=== PATIENT | male | born 1955 | race Caucasian/White ===

== ENCOUNTER 2017-06-18 11:02 | Inpatient (IN) ==
[2017-06-18 11:32] LABS: Basophils # 0.1 10*3/uL (0.0-0.2); Basophils % 0.6 % (0.0-0.8); Eosinophils % 0.1 % (0.00-10.9); Hematocrit 54.7 VOL% (42.0-52.0); Hemoglobin 18.5 GM/DL (14.0-18.0); Immature Granulocytes % 0.4 %; Immature Granulocytes Absolute 0.03 #; Lymphocytes # 0.6 10*3/uL (1.4-4.0); Lymphocytes % 7.7 % (21.2-54.2); Mean Corpuscular HGB Conc 33.8 GM/DL (32-36); Mean Corpuscular Hemoglobin 31 PG (27-34); Mean Corpuscular Volume 92.2 FL (87-102); Mean Platelet Volume 11.8 FL (9.6-12.0); Monocytes # 0.8 10*3/uL (0.11-0.8); Monocytes % 10.3 % (1.7-12.7); Neutrophils # 6.6 10*3/uL (1.4-7.4); Neutrophils % 80.9 % (38.7-73.9); Platelet Count 302 T/CUMM (130-400); Red Blood Count 5.93 MC/CUMM (3.8-5.5); Red Cell Distribution Width 12.3 % (9.3-17.3); White Blood Count 8.2 T/CUMM (4-12)
[2017-06-18 11:56] LABS: Band Neutrophils 3 % (0-10); Lymphocytes 12 % (20-55); Segmented Neutrophils 74 % (50-85); Total Cells Counted 100
[2017-06-18 11:57] LABS: Hypochromasia 1+; Platelet Estimate Normal
[2017-06-18] MEDS: ONDANSETRON 4 MG/2 ML VIAL IV PRN (12:00)
[2017-06-18] MEDS: SODIUM CHLORIDE 0.9% 1,000 ML IV SCH ×2 (12:00→21:44)
[2017-06-18 12:19] LABS: Bilirubin,Total 0.9 MG/DL (0.2-1.0); Calcium 10.5 MG/DL (8.5-10.1); Osmolality,Calculated 279.7 MOS/KG (273-304); Potassium 4.2 MMOL/L (3.5-5.1); Total Protein 8.9 G/DL (6.4-8.3)
[2017-06-18] MEDS ORDERED: MAGNESIUM HYDROXIDE SUSP 30 ML UDCUP PO PRN (12:28)
[2017-06-18] MEDS ORDERED: ONDANSETRON 4 MG/2 ML VIAL IV PRN (12:28)
[2017-06-18] MEDS ORDERED: ACETAMINOPHEN 325 MG TABLET PO PRN (12:28)
[2017-06-18] MEDS: GABAPENTIN 300 MG CAPSULE PO SCH (21:38)
[2017-06-19 07:20] LABS: Basophils % 0.3 % (0.0-0.8); Eosinophils # 0.1 10*3/uL (0.0-0.87); Eosinophils % 0.7 % (0.00-10.9); Hematocrit 47.4 VOL% (42.0-52.0); Hemoglobin 16.1 GM/DL (14.0-18.0); Immature Granulocytes % 0.4 %; Immature Granulocytes Absolute 0.04 #; Lymphocytes # 0.7 10*3/uL (1.4-4.0); Mean Corpuscular Hemoglobin 32 PG (27-34); Mean Corpuscular Volume 93.1 FL (87-102); Mean Platelet Volume 10.6 FL (9.6-12.0); Monocytes # 1.2 10*3/uL (0.11-0.8); Monocytes % 12.5 % (1.7-12.7); Neutrophils # 7.5 10*3/uL (1.4-7.4); Neutrophils % 79.1 % (38.7-73.9); Platelet Count 281 T/CUMM (130-400); Red Blood Count 5.09 MC/CUMM (3.8-5.5); Red Cell Distribution Width 12.4 % (9.3-17.3); White Blood Count 9.4 T/CUMM (4-12)
[2017-06-19 07:51] LABS: Hypochromasia 2+; Microcytosis 1+; Platelet Estimate Adequate
[2017-06-19] MEDS: SODIUM CHLORIDE 0.9% 1,000 ML IV SCH (08:00)
[2017-06-19 08:20] LABS: Bilirubin,Total 0.5 MG/DL (0.2-1.0); Calcium 8.3 MG/DL (8.5-10.1)
[2017-06-19] MEDS ORDERED: cefOXitin 2,000 MG in SYRINGE 1 EACH IV ONE (10:53)
[2017-06-19] MEDS: THEOPHYLLINE ER (24 HR) 200 MG CAPSULE PO SCH (11:30)
[2017-06-19] MEDS: DUTASTERIDE 0.5 MG CAPSULE PO SCH (11:30)
[2017-06-19] MEDS: PANTOPRAZOLE 40 MG TABLET PO SCH (11:30)
[2017-06-19] MEDS ORDERED: ROPIVACAINE 0.5% 30 ML VIAL ONE (11:33)
[2017-06-19] MEDS ORDERED: ALBUTEROL/IPRATROPIUM 3 ML NEB RESP TX PRN (11:34)
[2017-06-19] MEDS: LACTATED RINGERS 1,000 ML IV SCH (12:46)
[2017-06-19] MEDS: ALBUTEROL/IPRATROPIUM 3 ML NEB RESP TX SCH ×2 (13:10→21:10)
[2017-06-19] MEDS ORDERED: ALBUMIN 5% 12.5 GM/250 ML VIAL IV ONE (13:22)
[2017-06-19] MEDS ORDERED: POTASSIUM CHLORIDE RIDER 100 ML IV ONE (13:22)
[2017-06-19] MEDS ORDERED: SUGAMMADEX 200 MG/2 ML VIAL IV ONE (13:53)
[2017-06-19] MEDS ORDERED: NALOXONE 0.4 MG/ML VIAL IV PRN (14:06)
[2017-06-19] MEDS ORDERED: HYDROmorphone PCA 30 MG/30 ML SYRINGE IV ONE (14:29)
[2017-06-19] MEDS: HYDROmorphone PCA 30 MG/30 ML SYRINGE IV SCH (14:33)
[2017-06-19] MEDS ORDERED: SUCCINYLCHOLINE 200 MG/10 ML VIAL ONE (14:43)
[2017-06-19] MEDS ORDERED: PROPOFOL 200 MG/20 ML VIAL IV ONE (14:43)
[2017-06-19] MEDS ORDERED: fentaNYL 100 MCG/2 ML VIAL ONE (14:43)
[2017-06-19] MEDS ORDERED: ROCURONIUM 100 MG/10 ML VIAL IV ONE (14:43)
[2017-06-19] MEDS ORDERED: LACTATED RINGERS 1,000 ML IV ONE (14:43)
[2017-06-19] MEDS ORDERED: MIDAZOLAM 2 MG/2 ML VIAL ONE ×2 (14:43)
[2017-06-19] MEDS ORDERED: SEVOFLURANE 1 UNIT/15 MINUTE INH ONE (14:43)
[2017-06-19] MEDS ORDERED: ONDANSETRON 4 MG/2 ML VIAL ONE (14:50)
[2017-06-19] MEDS ORDERED: HYDROmorphone 2 MG/1 ML VIAL ONE (14:50)
[2017-06-19] MEDS ORDERED: ONDANSETRON 4 MG/2 ML VIAL IV PRN (14:51)
[2017-06-19] MEDS: HYDROmorphone 2 MG/1 ML VIAL IV PRN ×2 (14:55→15:00)
[2017-06-19 15:06] LABS: Apearance,Urine CLEAR (Clear); Bilirubin,Urine Negative (Negative); Blood, Urine Small mg/dL (Negative); Glucose,Urine (UA) Negative (Negative); Ketones,Urine 5 mg/dL (Negative); Nitrite,Urine Negative (Negative); Protein,Urine Negative; RBC,Urine 5 /HPF (0-4); Squamous Epithelial Cell,Urine Occasional /HPF (0-10); Urine Color Yellow (Yellow); Urine Urobilinogen < 2.0 EU/DL (0.2-1.0); WBC,Urine 3 /HPF (0-6)
[2017-06-19] MEDS: SODIUM CHLOR 0.9% KCL 40 MEQ 40 MEQ/1,000 ML BAG IV SCH (16:33)
[2017-06-19] MEDS: cefOXitin 1,000 MG in SYRINGE 1 EACH IV SCH (20:58)
[2017-06-19] MEDS: GABAPENTIN 300 MG CAPSULE PO SCH (20:59)
[2017-06-20] MEDS: SODIUM CHLOR 0.9% KCL 40 MEQ 40 MEQ/1,000 ML BAG IV SCH ×4 (00:48→15:10)
[2017-06-20] MEDS: ALBUTEROL/IPRATROPIUM 3 ML NEB RESP TX SCH ×4 (02:41→19:17)
[2017-06-20] MEDS: cefOXitin 1,000 MG in SYRINGE 1 EACH IV SCH ×4 (02:43→20:37)
[2017-06-20 05:35] LABS: Basophils % 0.4 % (0.0-0.8); Hematocrit 44.2 VOL% (42.0-52.0); Hemoglobin 15.1 GM/DL (14.0-18.0); Immature Granulocytes % 0.6 %; Immature Granulocytes Absolute 0.06 #; Lymphocytes # 0.4 10*3/uL (1.4-4.0); Lymphocytes % 3.8 % (21.2-54.2); Mean Corpuscular HGB Conc 34.2 GM/DL (32-36); Mean Corpuscular Hemoglobin 32 PG (27-34); Mean Corpuscular Volume 93.8 FL (87-102); Monocytes # 0.9 10*3/uL (0.11-0.8); Monocytes % 8.6 % (1.7-12.7); Neutrophils # 9.1 10*3/uL (1.4-7.4); Neutrophils % 86.6 % (38.7-73.9); Platelet Count 230 T/CUMM (130-400); Red Blood Count 4.71 MC/CUMM (3.8-5.5); Red Cell Distribution Width 12.8 % (9.3-17.3); White Blood Count 10.5 T/CUMM (4-12)
[2017-06-20 06:01] LABS: Calcium 7.5 MG/DL (8.5-10.1); Osmolality,Calculated 295.8 MOS/KG (273-304)
[2017-06-20 06:50] LABS: Band Neutrophils 1 % (0-10); Hypochromasia 1+; Lymphocytes 3 % (20-55); Platelet Estimate Adequate; Segmented Neutrophils 87 % (50-85); Total Cells Counted 100
[2017-06-20 06:51] LABS: Giant Platelets Few; Microcytosis Slight
[2017-06-20] MEDS: THEOPHYLLINE ER (24 HR) 200 MG CAPSULE PO SCH (12:04)
[2017-06-20] MEDS: DUTASTERIDE 0.5 MG CAPSULE PO SCH (12:04)
[2017-06-20] MEDS: PANTOPRAZOLE 40 MG TABLET PO SCH (12:04)
[2017-06-20] MEDS: LEVOFLOXACIN INJ 500 MG in PREMIX 1 EACH IV SCH (13:01)
[2017-06-20] MEDS: LACTATED RINGERS 1,000 ML IV SCH (13:42)
[2017-06-20] MEDS: HYDROmorphone PCA 30 MG/30 ML SYRINGE IV SCH (16:20)
[2017-06-20] MEDS: DEXT 5% NACL 0.45% KCL 20 MEQ 20 MEQ/1,000 ML BAG IV SCH (16:21)
[2017-06-20] MEDS: GABAPENTIN 300 MG CAPSULE PO SCH (20:44)
[2017-06-21] MEDS: ALBUTEROL/IPRATROPIUM 3 ML NEB RESP TX SCH ×4 (00:30→20:18)
[2017-06-21] MEDS: DEXT 5% NACL 0.45% KCL 20 MEQ 20 MEQ/1,000 ML BAG IV SCH ×4 (00:37→18:56)
[2017-06-21] MEDS: cefOXitin 1,000 MG in SYRINGE 1 EACH IV SCH ×4 (03:16→20:14)
[2017-06-21 06:10] LABS: Basophils % 0.3 % (0.0-0.8); Eosinophils # 0.3 10*3/uL (0.0-0.87); Eosinophils % 3.9 % (0.00-10.9); Hematocrit 41.2 VOL% (42.0-52.0); Hemoglobin 13.3 GM/DL (14.0-18.0); Immature Granulocytes % 0.6 %; Immature Granulocytes Absolute 0.05 #; Lymphocytes # 0.8 10*3/uL (1.4-4.0); Mean Corpuscular HGB Conc 32.3 GM/DL (32-36); Mean Corpuscular Hemoglobin 32 PG (27-34); Mean Corpuscular Volume 97.9 FL (87-102); Mean Platelet Volume 11.5 FL (9.6-12.0); Monocytes # 0.8 10*3/uL (0.11-0.8); Monocytes % 9.4 % (1.7-12.7); Neutrophils # 6.7 10*3/uL (1.4-7.4); Neutrophils % 76.8 % (38.7-73.9); Platelet Count 248 T/CUMM (130-400); Red Blood Count 4.21 MC/CUMM (3.8-5.5); Red Cell Distribution Width 12.8 % (9.3-17.3); White Blood Count 8.7 T/CUMM (4-12)
[2017-06-21 06:39] LABS: Albumin 2.3 G/DL (3.4-5.0); Bilirubin,Total 1.6 MG/DL (0.2-1.0); Osmolality,Calculated 285.3 MOS/KG (273-304); Total Protein 5.1 G/DL (6.4-8.3)
[2017-06-21 07:23] LABS: Eosinophils 2 % (0-10); Giant Platelets Few; Hypochromasia 1+; Lymphocytes 10 % (20-55); Microcytosis Slight; Platelet Estimate Adequate; Segmented Neutrophils 82 % (50-85); Total Cells Counted 100
[2017-06-21] MEDS: HYDROmorphone PCA 30 MG/30 ML SYRINGE IV SCH (14:05)
[2017-06-21] MEDS: LACTATED RINGERS 1,000 ML IV SCH (14:06)
[2017-06-21] MEDS: LEVOFLOXACIN INJ 500 MG in PREMIX 1 EACH IV SCH (14:11)
[2017-06-21] MEDS: THEOPHYLLINE ER (24 HR) 200 MG CAPSULE PO SCH (17:07)
[2017-06-21] MEDS: DUTASTERIDE 0.5 MG CAPSULE PO SCH (17:07)
[2017-06-21] MEDS: PANTOPRAZOLE 40 MG TABLET PO SCH (17:09)
[2017-06-21] MEDS: GABAPENTIN 300 MG CAPSULE PO SCH (20:22)
[2017-06-22] MEDS: ALBUTEROL/IPRATROPIUM 3 ML NEB RESP TX SCH ×4 (01:13→20:06)
[2017-06-22] MEDS: cefOXitin 1,000 MG in SYRINGE 1 EACH IV SCH ×4 (03:42→20:38)
[2017-06-22] MEDS: DEXT 5% NACL 0.45% KCL 20 MEQ 20 MEQ/1,000 ML BAG IV SCH (05:39)
[2017-06-22 06:54] LABS: Calcium 7.9 MG/DL (8.5-10.1); Osmolality,Calculated 274.7 MOS/KG (273-304); Potassium 4.3 MMOL/L (3.5-5.1)
[2017-06-22] MEDS ORDERED: BUPIVACAINE 0.25% 50 ML VIAL ONE (07:51)
[2017-06-22] MEDS ORDERED: PROPOFOL 200 MG/20 ML VIAL IV ONE (09:11)
[2017-06-22] MEDS ORDERED: ONDANSETRON 4 MG/2 ML VIAL ONE (09:12)
[2017-06-22] MEDS ORDERED: SODIUM CHLORIDE 0.9% 100 ML IV ONE (09:12)
[2017-06-22] MEDS ORDERED: MIDAZOLAM 2 MG/2 ML VIAL ONE (09:12)
[2017-06-22] MEDS ORDERED: fentaNYL 100 MCG/2 ML VIAL ONE (09:12)
[2017-06-22] MEDS: DUTASTERIDE 0.5 MG CAPSULE PO SCH (10:17)
[2017-06-22] MEDS: PANTOPRAZOLE 40 MG TABLET PO SCH ×2 (10:17→18:32)
[2017-06-22] MEDS: THEOPHYLLINE ER (24 HR) 200 MG CAPSULE PO SCH (10:17)
[2017-06-22] MEDS: LEVOFLOXACIN INJ 500 MG in PREMIX 1 EACH IV SCH (13:02)
[2017-06-22] MEDS: HYDROmorphone PCA 30 MG/30 ML SYRINGE IV SCH ×2 (14:18→16:47)
[2017-06-22] MEDS ORDERED: ALUMINUM/MAGNES/SIMETH MAX STR 30 ML UDCUP PO PRN (18:32)
[2017-06-22] MEDS: GABAPENTIN 300 MG CAPSULE PO SCH (20:41)
[2017-06-23] MEDS: DEXT 5% NACL 0.45% KCL 20 MEQ 20 MEQ/1,000 ML BAG IV SCH ×2 (00:27→13:51)
[2017-06-23] MEDS: ALBUTEROL/IPRATROPIUM 3 ML NEB RESP TX SCH ×4 (00:31→19:40)
[2017-06-23] MEDS: cefOXitin 1,000 MG in SYRINGE 1 EACH IV SCH ×4 (02:06→20:42)
[2017-06-23 06:35] LABS: Calcium 8.5 MG/DL (8.5-10.1); Potassium 4.5 MMOL/L (3.5-5.1)
[2017-06-23] MEDS: DUTASTERIDE 0.5 MG CAPSULE PO SCH (08:55)
[2017-06-23] MEDS: THEOPHYLLINE ER (24 HR) 200 MG CAPSULE PO SCH (08:55)
[2017-06-23] MEDS: PANTOPRAZOLE 40 MG TABLET PO SCH (08:56)
[2017-06-23] MEDS: ONDANSETRON 4 MG/2 ML VIAL IV PRN (12:42)
[2017-06-23] MEDS: LEVOFLOXACIN INJ 500 MG in PREMIX 1 EACH IV SCH (13:51)
[2017-06-23] MEDS ORDERED: GLUCAGON 1 MG VIAL IM PRN (14:17)
[2017-06-23] MEDS ORDERED: DEXTROSE 50% 25 GM/50 ML VIAL IV PRN (14:17)
[2017-06-23] MEDS: AMINO ACIDS/DEXT/LYTES 4.25-5% 2,000 ML IV SCH (16:26)
[2017-06-23] MEDS: SUCRALFATE 1 GM/10 ML UDCUP PO SCH ×2 (16:27→20:46)
[2017-06-23] MEDS: HYDROmorphone PCA 30 MG/30 ML SYRINGE IV SCH (16:27)
[2017-06-23] MEDS: GABAPENTIN 300 MG CAPSULE PO SCH (20:46)
[2017-06-24] MEDS: cefOXitin 1,000 MG in SYRINGE 1 EACH IV SCH ×4 (02:11→21:58)
[2017-06-24 06:58] LABS: Calcium 8.5 MG/DL (8.5-10.1); Osmolality,Calculated 273.8 MOS/KG (273-304); Potassium 3.9 MMOL/L (3.5-5.1); Prealbumin 11.8 MG/DL (20-40)
[2017-06-24] MEDS: ALBUTEROL/IPRATROPIUM 3 ML NEB RESP TX SCH ×4 (07:07→19:30)
[2017-06-24] MEDS ORDERED: HYDROmorphone 2 MG/1 ML VIAL IV PRN (09:54)
[2017-06-24] MEDS: SUCRALFATE 1 GM/10 ML UDCUP PO SCH ×4 (11:07→21:57)
[2017-06-24] MEDS: THEOPHYLLINE ER (24 HR) 200 MG CAPSULE PO SCH (11:08)
[2017-06-24] MEDS: PANTOPRAZOLE 40 MG TABLET PO SCH (11:08)
[2017-06-24] MEDS: DUTASTERIDE 0.5 MG CAPSULE PO SCH (11:08)
[2017-06-24] MEDS: AMINO ACIDS/DEXT/LYTES 4.25-5% 2,000 ML IV SCH (16:23)
[2017-06-24] MEDS: LEVOFLOXACIN INJ 500 MG in PREMIX 1 EACH IV SCH (16:24)
[2017-06-24] MEDS: GABAPENTIN 300 MG CAPSULE PO SCH (21:58)
[2017-06-25] MEDS: ALBUTEROL/IPRATROPIUM 3 ML NEB RESP TX SCH ×4 (00:50→20:03)
[2017-06-25] MEDS: cefOXitin 1,000 MG in SYRINGE 1 EACH IV SCH ×4 (04:31→22:00)
[2017-06-25] MEDS: DUTASTERIDE 0.5 MG CAPSULE PO SCH (09:35)
[2017-06-25] MEDS: SUCRALFATE 1 GM/10 ML UDCUP PO SCH ×4 (09:35→22:17)
[2017-06-25] MEDS: THEOPHYLLINE ER (24 HR) 200 MG CAPSULE PO SCH (09:35)
[2017-06-25] MEDS: PANTOPRAZOLE 40 MG TABLET PO SCH (09:35)
[2017-06-25 13:46] LABS: Basophils # 0.1 10*3/uL (0.0-0.2); Eosinophils # 0.3 10*3/uL (0.0-0.87); Hematocrit 45.6 VOL% (42.0-52.0); Hemoglobin 15.3 GM/DL (14.0-18.0); Immature Granulocytes Absolute 0.46 #; Lymphocytes # 1.3 10*3/uL (1.4-4.0); Lymphocytes % 11.3 % (21.2-54.2); Mean Corpuscular HGB Conc 33.6 GM/DL (32-36); Mean Corpuscular Hemoglobin 31 PG (27-34); Mean Corpuscular Volume 93.1 FL (87-102); Mean Platelet Volume 10.3 FL (9.6-12.0); Monocytes # 1.3 10*3/uL (0.11-0.8); Monocytes % 11.2 % (1.7-12.7); Neutrophils # 7.9 10*3/uL (1.4-7.4); Neutrophils % 69.5 % (38.7-73.9); Platelet Count 365 T/CUMM (130-400); Red Cell Distribution Width 12.4 % (9.3-17.3); White Blood Count 11.4 T/CUMM (4-12)
[2017-06-25] MEDS: AMINO ACIDS/DEXT/LYTES 4.25-5% 2,000 ML IV SCH (14:22)
[2017-06-25] MEDS: VANCOMYCIN INJ 1,000 MG in SODIUM CHLORIDE 0.9% 250 ML IV SCH (16:36)
[2017-06-25] MEDS: LEVOFLOXACIN INJ 500 MG in PREMIX 1 EACH IV SCH (18:46)
[2017-06-25] MEDS: GABAPENTIN 300 MG CAPSULE PO SCH (22:17)
[2017-06-26] MEDS: ALBUTEROL/IPRATROPIUM 3 ML NEB RESP TX SCH ×3 (01:05→20:02)
[2017-06-26] MEDS: VANCOMYCIN INJ 1,000 MG in SODIUM CHLORIDE 0.9% 250 ML IV SCH ×2 (02:24→14:35)
[2017-06-26] MEDS: cefOXitin 1,000 MG in SYRINGE 1 EACH IV SCH ×4 (04:34→22:43)
[2017-06-26 05:27] LABS: Basophils # 0.1 10*3/uL (0.0-0.2); Basophils % 1.2 % (0.0-0.8); Eosinophils # 0.4 10*3/uL (0.0-0.87); Eosinophils % 3.4 % (0.00-10.9); Hematocrit 42.1 VOL% (42.0-52.0); Hemoglobin 14.5 GM/DL (14.0-18.0); Immature Granulocytes % 4.2 %; Immature Granulocytes Absolute 0.46 #; Lymphocytes # 1.3 10*3/uL (1.4-4.0); Lymphocytes % 11.5 % (21.2-54.2); Mean Corpuscular HGB Conc 34.4 GM/DL (32-36); Mean Corpuscular Hemoglobin 32 PG (27-34); Mean Corpuscular Volume 91.9 FL (87-102); Mean Platelet Volume 10.3 FL (9.6-12.0); Monocytes # 1.3 10*3/uL (0.11-0.8); Monocytes % 11.7 % (1.7-12.7); Neutrophils # 7.5 10*3/uL (1.4-7.4); Platelet Count 339 T/CUMM (130-400); Red Blood Count 4.58 MC/CUMM (3.8-5.5); Red Cell Distribution Width 12.4 % (9.3-17.3)
[2017-06-26 05:57] LABS: Osmolality,Calculated 273.1 MOS/KG (273-304); Potassium 4.4 MMOL/L (3.5-5.1)
[2017-06-26] MEDS: PANTOPRAZOLE 40 MG TABLET PO SCH (08:01)
[2017-06-26] MEDS: DUTASTERIDE 0.5 MG CAPSULE PO SCH (08:01)
[2017-06-26] MEDS: THEOPHYLLINE ER (24 HR) 200 MG CAPSULE PO SCH (08:01)
[2017-06-26] MEDS: SUCRALFATE 1 GM/10 ML UDCUP PO SCH ×4 (08:01→20:44)
[2017-06-26] MEDS: AMINO ACIDS/DEXT/LYTES 4.25-5% 2,000 ML IV SCH (12:05)
[2017-06-26] MEDS: LEVOFLOXACIN INJ 500 MG in PREMIX 1 EACH IV SCH (16:27)
[2017-06-26] MEDS: GABAPENTIN 300 MG CAPSULE PO SCH (20:43)
[2017-06-27] MEDS: VANCOMYCIN INJ 1,000 MG in SODIUM CHLORIDE 0.9% 250 ML IV SCH ×2 (02:43→15:36)
[2017-06-27] MEDS: cefOXitin 1,000 MG in SYRINGE 1 EACH IV SCH ×4 (03:59→22:51)
[2017-06-27 04:51] LABS: Calcium 8.9 MG/DL (8.5-10.1); Osmolality,Calculated 275.8 MOS/KG (273-304); Potassium 4.4 MMOL/L (3.5-5.1)
[2017-06-27] MEDS: ALBUTEROL/IPRATROPIUM 3 ML NEB RESP TX SCH ×2 (07:52→20:02)
[2017-06-27] MEDS: SUCRALFATE 1 GM/10 ML UDCUP PO SCH ×4 (09:07→21:06)
[2017-06-27] MEDS: DUTASTERIDE 0.5 MG CAPSULE PO SCH (09:08)
[2017-06-27] MEDS: PANTOPRAZOLE 40 MG TABLET PO SCH (09:08)
[2017-06-27] MEDS: THEOPHYLLINE ER (24 HR) 200 MG CAPSULE PO SCH (09:08)
[2017-06-27] MEDS: AMINO ACIDS/DEXT/LYTES 4.25-5% 2,000 ML IV SCH (12:59)
[2017-06-27] MEDS: LEVOFLOXACIN INJ 500 MG in PREMIX 1 EACH IV SCH (17:26)
[2017-06-27] MEDS: GABAPENTIN 300 MG CAPSULE PO SCH (21:05)
[2017-06-28] MEDS: VANCOMYCIN INJ 1,000 MG in SODIUM CHLORIDE 0.9% 250 ML IV SCH (02:55)
[2017-06-28] MEDS: cefOXitin 1,000 MG in SYRINGE 1 EACH IV SCH ×2 (04:48→11:47)
[2017-06-28 05:26] LABS: Calcium 9.2 MG/DL (8.5-10.1); Osmolality,Calculated 275.8 MOS/KG (273-304); Potassium 4.4 MMOL/L (3.5-5.1)
[2017-06-28] MEDS: ALBUTEROL/IPRATROPIUM 3 ML NEB RESP TX SCH (08:00)
[2017-06-28] MEDS: SUCRALFATE 1 GM/10 ML UDCUP PO SCH ×2 (09:16→11:48)
[2017-06-28] MEDS: THEOPHYLLINE ER (24 HR) 200 MG CAPSULE PO SCH (09:16)
[2017-06-28] MEDS: DUTASTERIDE 0.5 MG CAPSULE PO SCH (09:16)
[2017-06-28] MEDS: PANTOPRAZOLE 40 MG TABLET PO SCH (09:16)
[2017-06-28 13:29] VITALS: BP 104/67
== END 2017-06-28 13:32 | disposition home or self-care (01) | DRG 344 ==
LOC: N.GILAB 11:02 → N.4E 13:12
PROVIDERS: ADMIT Internal Medicine Gastroenterology; ATTEND Internal Medicine Gastroenterology

== ENCOUNTER 2021-11-14 13:40 | Inpatient (IN) ==
[2021-11-14] MEDS ORDERED: HEPARIN LOCK FLUSH 500 UNIT/5 ML SYRINGE IV ONE (14:16)
[2021-11-14] MEDS ORDERED: SODIUM CHLORIDE 0.9% 500 ML IV ONE (15:37)
[2021-11-14] MEDS: SODIUM CHLORIDE 0.9% 1,000 ML IV SCH (16:58)
[2021-11-14 17:35] LABS: Basophils % 0.6 % (0.0-0.8); Eosinophils # 0.1 10*3/uL (0.0-0.87); Eosinophils % 2.2 % (0.00-10.9); Hematocrit 35.2 VOL% (42.0-52.0); Hemoglobin 11.6 GM/DL (14.0-18.0); Immature Granulocytes % 0.6 %; Immature Granulocytes Absolute 0.02 #; Lymphocytes # 0.3 10*3/uL (1.4-4.0); Lymphocytes % 8.4 % (21.2-54.2); Mean Corpuscular Volume 95.9 FL (87-102); Mean Platelet Volume 9.2 FL (9.6-12.0); Monocytes # 0.6 10*3/uL (0.11-0.8); Monocytes % 16.7 % (1.7-12.7); Neutrophils % 71.5 % (38.7-73.9); Platelet Count 243 T/CUMM (130-400); Red Blood Count 3.67 MC/CUMM (3.8-5.5); Red Cell Distribution Width 14.2 % (9.3-17.3); White Blood Count 3.6 T/CUMM (4-12)
[2021-11-14 17:56] LABS: Albumin 2.6 G/DL (3.4-5.0); Bilirubin,Total 0.4 MG/DL (0.20-1.00); Osmolality,Calculated 273.8 MOS/KG (273-304); Potassium 3.8 MMOL/L (3.5-5.1); Total Protein 6.4 G/DL (6.4-8.2)
[2021-11-14 18:09] LABS: Band Neutrophils 12 % (0-10); Eosinophils 2 % (0-10); Lymphocytes 13 % (20-55); Total Cells Counted 100
[2021-11-14 18:10] LABS: Platelet Estimate Adequate
[2021-11-15] MEDS: SODIUM CHLORIDE 0.9% 1,000 ML IV SCH (06:00)
[2021-11-15] MEDS ORDERED: LACTATED RINGERS 1,000 ML IV SCH (11:00)
[2021-11-15] MEDS ORDERED: ROCURONIUM 50 MG/5 ML VIAL IV ONE ×2 (12:02→13:43)
[2021-11-15] MEDS ORDERED: ONDANSETRON 4 MG/2 ML VIAL ONE ×2 (12:02→14:06)
[2021-11-15] MEDS ORDERED: SEVOFLURANE 1 UNIT/15 MINUTE INH ONE ×7 (12:02→14:06)
[2021-11-15] MEDS ORDERED: LIDOCAINE 2% 5 ML VIAL ONE (12:02)
[2021-11-15] MEDS ORDERED: propofoL 200 MG/20 ML VIAL IV ONE ×2 (12:02→13:13)
[2021-11-15] MEDS ORDERED: PHENYLEPHRINE 1 MG/10 ML SYRINGE IV ONE ×4 (13:31→14:26)
[2021-11-15] MEDS ORDERED: fentaNYL 100 MCG/2 ML VIAL ONE (13:43)
[2021-11-15] MEDS ORDERED: CLINDAMYCIN INJ 900 MG/50 ML PREMIX IV ONE (13:59)
[2021-11-15] MEDS ORDERED: ePHEDrine 50 MG/ML VIAL ONE (14:18)
[2021-11-15] MEDS ORDERED: CALCIUM CHLORIDE 1,000 MG/10 ML VIAL IV ONE (14:32)
[2021-11-15] MEDS ORDERED: ALBUMIN 5% 25.0 GM/500 ML VIAL IV ONE (14:38)
[2021-11-15 14:58] LABS: Hematocrit Heart Surgery 35.3 PERCENT (42-52); Hemoglobin Heart Surgery 11.5 G/DL (14.0-18.0); PH Patient Temp Venous 7.184; PO2 Patient Temp Venous 60.2 MM HG; Potassium Heart/CVR 3.4 MMOL/L (3.5-5.1); VBG Base Excess -8.5 MEQ/L (0-4); VBG HCO3 17.3 MEQ/L (24-28); VBG Oxygen Saturation 77.9 %; VBG PH 7.184; VBG PO2 60.2 MMHG (17-40); VBG Total CO2 18.9 MMOL/L
[2021-11-15] MEDS ORDERED: HEPARIN/NACL 0.9% 2 UNITS/ML 1,000 UNIT/500 ML BAG IV ONE (15:15)
[2021-11-15 15:32] LABS: ABG Base Excess -9.5 MMOL/L (-2.5-2.5); ABG HCO3 16.9 MMOL/L (20-26); ABG Oxygen Saturation 99.2 % (95-100); ABG PCO2 42.9 MM HG (35-48); ABG PH 7.227 (7.35-7.45); ABG TCO2 16.5 MMOL/L (23-27); Glucose Heart Surgery 81 MG/DL (74-106); Hematocrit Heart Surgery 32.2 PERCENT (42-52); Hemoglobin Heart Surgery 10.4 G/DL (14.0-18.0); Ionized Calcium Arterial 1.44 MMOL/L (1.21-1.46); PCO2 Patient Temp Arterial 42.9 MMHG; PH Patient Temp Arterial 7.227; Patient Temperature 37 CELCIUS; Potassium Heart/CVR 3.2 MMOL/L (3.5-5.1); Sodium Heart/CVR 140 MMOL/L (135-145)
[2021-11-15] MEDS ORDERED: SUGAMMADEX 200 MG/2 ML VIAL IV ONE (15:34)
[2021-11-15 15:46] LABS: Bacteria,Urine Occasional /HPF (Few); Mucus,Urine Occasional /LPF (Occasional); RBC,Urine 2 /HPF (0-4)
[2021-11-15 15:47] LABS: Urine Appearance Clear (Clear); Urine Color Yellow (Yellow)
[2021-11-15 15:48] LABS: Bilirubin,Urine Small mg/dL (Negative); Blood, Urine Negative (Negative); Glucose,Urine (UA) Negative (Negative); Ketones,Urine 80 mg/dL (Negative); Nitrite,Urine Negative (Negative); Protein,Urine Negative (Negative); Urine Specific Gravity 1.025 (1.001-1.035); Urine Urobilinogen 0.2 eU/dL (<2.0); Urine pH 5.5 (4.5-8.0)
[2021-11-15] MEDS ORDERED: SODIUM BICARBONATE 50 MEQ/50 ML VIAL IV ONE (15:50)
[2021-11-15] MEDS ORDERED: CISATRACURIUM 10 MG/5 ML VIAL IV ONE (15:53)
[2021-11-15] MEDS ORDERED: MIDAZOLAM 2 MG/2 ML VIAL ONE (15:56)
[2021-11-15] MEDS ORDERED: SODIUM CHLORIDE 0.9% 1,000 ML IV ONE (15:59)
[2021-11-15] MEDS: HYDROmorphone 1 MG/1 ML SYRINGE IV PRN ×2 (16:35→19:20)
[2021-11-15] MEDS: DEXTROSE 5% LACTATED RINGERS 1,000 ML IV SCH (16:41)
[2021-11-15 17:05] LABS: Basophils % 1.1 % (0.0-0.8); Eosinophils % 1.1 % (0.00-10.9); Hematocrit 33.5 VOL% (42.0-52.0); Hemoglobin 10.8 GM/DL (14.0-18.0); Immature Granulocytes % 1.1 %; Immature Granulocytes Absolute 0.01 #; Lymphocytes # 0.1 10*3/uL (1.4-4.0); Lymphocytes % 7.7 % (21.2-54.2); Mean Corpuscular HGB Conc 32.2 GM/DL (32-36); Mean Platelet Volume 8.6 FL (9.6-12.0); Monocytes % 2.2 % (1.7-12.7); Neutrophils % 86.8 % (38.7-73.9); Platelet Count 192 T/CUMM (130-400); Red Blood Count 3.42 MC/CUMM (3.8-5.5); Red Cell Distribution Width 14.3 % (9.3-17.3)
[2021-11-15 17:10] LABS: ABG Base Excess -7.1 MMOL/L (-2.5-2.5); ABG HCO3 18.7 MMOL/L (20-26); ABG Oxygen Saturation 96.1 % (95-100); ABG PCO2 50.2 MM HG (35-48); ABG PH 7.227 (7.35-7.45); ABG TCO2 19.1 MMOL/L (23-27)
[2021-11-15 17:10] LABS: White Blood Count 0.9 T/CUMM (4-12)
[2021-11-15 17:23] LABS: Calcium 8.7 MG/DL (8.5-10.1); Osmolality,Calculated 283.1 MOS/KG (273-304); Potassium 3.1 MMOL/L (3.5-5.1)
[2021-11-15 17:29] LABS: Platelet Estimate Adequate; Toxic Granulation 1+
[2021-11-15] MEDS ORDERED: ALBUMIN 5% 12.5 GM/250 ML VIAL IV ONE (18:00)
[2021-11-15 20:00] LABS: Calcium 8.3 MG/DL (8.5-10.1); Potassium 3.1 MMOL/L (3.5-5.1)
[2021-11-15] MEDS: POTASSIUM CHLORIDE RIDER 20 MEQ/100 ML PREMIX IV PRN ×2 (20:25→21:18)
[2021-11-15] MEDS: MAGNESIUM SULF RIDER 2 GM/50 ML PREMIX IV PRN ×2 (20:26→21:57)
[2021-11-15] MEDS ORDERED: LACTATED RINGERS 1,000 ML IV ONE (20:30)
[2021-11-15] MEDS: metroNIDAZOLE INJ 500 MG/100 ML PREMIX IV SCH (21:11)
[2021-11-15] MEDS ORDERED: NOREPINEPHRINE 4 MG/4 ML VIAL IV ONE (21:32)
[2021-11-15] MEDS: NOREPINEPHRINE 8 MG in SODIUM CHLORIDE 0.9% 242 ML IV PRN (21:40)
[2021-11-15] MEDS: FILGRASTIM-SNDZ 300 MCG/0.5 ML SYRINGE SUBCUT SCH (22:07)
[2021-11-16] MEDS: POTASSIUM CHLORIDE RIDER 20 MEQ/100 ML PREMIX IV PRN (01:29)
[2021-11-16] MEDS: DEXTROSE 5% LACTATED RINGERS 1,000 ML IV SCH ×3 (01:45→19:53)
[2021-11-16] MEDS ORDERED: MIDAZOLAM 100 MG in SODIUM CHLORIDE 0.9% 80 ML IV PRN (02:21)
[2021-11-16] MEDS: POTASSIUM CHLORIDE RIDER 10 MEQ/100 ML PREMIX IV PRN (02:38)
[2021-11-16] MEDS: NOREPINEPHRINE 8 MG in SODIUM CHLORIDE 0.9% 242 ML IV PRN ×4 (04:03→20:53)
[2021-11-16 04:11] LABS: Basophils % 0.4 % (0.0-0.8); Hematocrit 32.7 VOL% (42.0-52.0); Hemoglobin 10.9 GM/DL (14.0-18.0); Immature Granulocytes % 0.9 %; Immature Granulocytes Absolute 0.04 #; Lymphocytes # 0.1 10*3/uL (1.4-4.0); Lymphocytes % 1.7 % (21.2-54.2); Mean Corpuscular HGB Conc 33.3 GM/DL (32-36); Mean Corpuscular Volume 96.5 FL (87-102); Mean Platelet Volume 9.2 FL (9.6-12.0); Monocytes # 0.3 10*3/uL (0.11-0.8); Monocytes % 5.9 % (1.7-12.7); Neutrophils % 91.1 % (38.7-73.9); Platelet Count 238 T/CUMM (130-400); Red Blood Count 3.39 MC/CUMM (3.8-5.5); Red Cell Distribution Width 14.3 % (9.3-17.3); White Blood Count 4.6 T/CUMM (4-12)
[2021-11-16 04:16] LABS: ABG Base Excess -2.7 MMOL/L (-2.5-2.5); ABG HCO3 22.2 MMOL/L (20-26); ABG Oxygen Saturation 98.7 % (95-100); ABG PCO2 36.2 MM HG (35-48); ABG PH 7.388 (7.35-7.45); ABG TCO2 19.6 MMOL/L (23-27)
[2021-11-16 04:39] LABS: Alanine Aminotransferase 16 U/L (16-61); Albumin 2.3 G/DL (3.4-5.0); Alkaline Phosphatase 79 U/L (45-117); Aspartate Amino Transferase 18 U/L (0-37); Bilirubin,Total < 0.39 MG/DL (0.20-1.00); Blood Urea Nitrogen 19 MG/DL (7-18); Calcium 8.1 MG/DL (8.5-10.1); Carbon Dioxide 22 MMOL/L (21-32); Chloride 113 MMOL/L (98-107); Glucose 205 MG/DL (74-106); Osmolality,Calculated 288.3 MOS/KG (273-304); Potassium 4.1 MMOL/L (3.5-5.1); Sodium 141 MMOL/L (136-145); Total Protein 4.9 G/DL (6.4-8.2)
[2021-11-16] MEDS: HYDROmorphone 1 MG/1 ML SYRINGE IV PRN ×4 (05:08→19:33)
[2021-11-16] MEDS: metroNIDAZOLE INJ 500 MG/100 ML PREMIX IV SCH (05:10)
[2021-11-16 05:13] LABS: Band Neutrophils 10 % (0-10); Lymphocytes 4 % (20-55); Total Cells Counted 100
[2021-11-16 05:15] LABS: Platelet Estimate Normal
[2021-11-16] MEDS: PANTOPRAZOLE 40 MG VIAL IV SCH (08:12)
[2021-11-16] MEDS: FILGRASTIM-SNDZ 300 MCG/0.5 ML SYRINGE SUBCUT SCH (08:13)
[2021-11-16] MEDS: cefOXitin 1,000 MG in SODIUM CHLORIDE 0.9% 100 ML IV SCH ×2 (09:00→17:18)
[2021-11-16] MEDS ORDERED: LEVOFLOXACIN INJ 500 MG/100 ML PREMIX IV ONE (09:40)
[2021-11-16] MEDS ORDERED: ALBUMIN 5% 12.5 GM/250 ML VIAL IV ONE ×2 (11:54→12:30)
[2021-11-16] MEDS: ONDANSETRON 4 MG/2 ML VIAL IV PRN (19:34)
[2021-11-17] MEDS: HYDROmorphone 1 MG/1 ML SYRINGE IV PRN ×5 (00:22→20:32)
[2021-11-17] MEDS: ONDANSETRON 4 MG/2 ML VIAL IV PRN ×4 (00:23→20:32)
[2021-11-17] MEDS: cefOXitin 1,000 MG in SODIUM CHLORIDE 0.9% 100 ML IV SCH ×3 (02:16→18:00)
[2021-11-17] MEDS: NOREPINEPHRINE 8 MG in SODIUM CHLORIDE 0.9% 242 ML IV PRN (03:32)
[2021-11-17] MEDS: DEXTROSE 5% LACTATED RINGERS 1,000 ML IV SCH ×2 (04:26→18:17)
[2021-11-17 04:34] LABS: Basophils % 0.1 % (0.0-0.8); Eosinophils % 0.2 % (0.00-10.9); Hematocrit 32.3 VOL% (42.0-52.0); Hemoglobin 10.5 GM/DL (14.0-18.0); Immature Granulocytes % 1.7 %; Immature Granulocytes Absolute 0.31 #; Lymphocytes # 0.2 10*3/uL (1.4-4.0); Lymphocytes % 1.1 % (21.2-54.2); Mean Corpuscular HGB Conc 32.5 GM/DL (32-36); Mean Corpuscular Volume 96.7 FL (87-102); Mean Platelet Volume 9.4 FL (9.6-12.0); Monocytes # 0.2 10*3/uL (0.11-0.8); Monocytes % 1.3 % (1.7-12.7); Neutrophils % 95.6 % (38.7-73.9); Red Blood Count 3.34 MC/CUMM (3.8-5.5); Red Cell Distribution Width 14.6 % (9.3-17.3)
[2021-11-17 04:38] LABS: Platelet Count 165 T/CUMM (130-400); White Blood Count 17.7 T/CUMM (4-12)
[2021-11-17 04:50] LABS: Alanine Aminotransferase 19 U/L (16-61); Albumin 2.1 G/DL (3.4-5.0); Alkaline Phosphatase 90 U/L (45-117); Aspartate Amino Transferase 21 U/L (0-37); Bilirubin,Total < 0.39 MG/DL (0.20-1.00); Blood Urea Nitrogen 13 MG/DL (7-18); Calcium 8.1 MG/DL (8.5-10.1); Carbon Dioxide 24 MMOL/L (21-32); Chloride 114 MMOL/L (98-107); Glucose 91 MG/DL (74-106); Potassium 4.2 MMOL/L (3.5-5.1); Sodium 143 MMOL/L (136-145); Total Protein 4.9 G/DL (6.4-8.2)
[2021-11-17 04:56] LABS: ABG Base Excess 0.3 MMOL/L (-2.5-2.5); ABG HCO3 24.5 MMOL/L (20-26); ABG Oxygen Saturation 88.6 % (95-100); ABG PCO2 43.8 MM HG (35-48); ABG PH 7.376 (7.35-7.45); ABG PO2 59.8 MM HG (80-95); ABG TCO2 23.3 MMOL/L (23-27)
[2021-11-17 05:10] LABS: Band Neutrophils 16 % (0-10); Lymphocytes 1 % (20-55); Metamyelocytes 6 %; Total Cells Counted 100
[2021-11-17 05:11] LABS: Hypochromia 2+
[2021-11-17 05:12] LABS: Platelet Estimate Normal
[2021-11-17] MEDS: PANTOPRAZOLE 40 MG VIAL IV SCH (08:29)
[2021-11-17] MEDS: FILGRASTIM-SNDZ 300 MCG/0.5 ML SYRINGE SUBCUT SCH (08:30)
[2021-11-17] MEDS ORDERED: FUROSEMIDE 40 MG/4 ML VIAL IV ONE (09:00)
[2021-11-17] MEDS: HYDROCORTISONE 100 MG VIAL IV SCH ×2 (09:15→18:00)
[2021-11-17 09:16] LABS: Arterial Base Excess iSTAT 0 MMOL/L (-2.5-2.5); Arterial Bicarbonate iSTAT 25.6 MMOL/L (20-26); Arterial O2 Saturation iSTAT 92 % (95-100); Arterial PCO2 iSTAT 47 MM HG (35-48); Arterial PO2 iSTAT 68 MM HG (80-95); Arterial Total CO2 iSTAT 27 MMO/L (23-27); Arterial pH iSTAT 7.349 (7.35-7.45)
[2021-11-17] MEDS ORDERED: LIDOCAINE 5% PATCH TRANSDERM SCH (10:29)
[2021-11-17] MEDS: LIDOCAINE 5% PATCH TRANSDERM SCH (14:30)
[2021-11-18] MEDS: cefOXitin 1,000 MG in SODIUM CHLORIDE 0.9% 100 ML IV SCH ×3 (00:50→16:45)
[2021-11-18] MEDS: HYDROCORTISONE 100 MG VIAL IV SCH (00:51)
[2021-11-18] MEDS: ONDANSETRON 4 MG/2 ML VIAL IV PRN (00:51)
[2021-11-18] MEDS: HYDROmorphone 1 MG/1 ML SYRINGE IV PRN (00:51)
[2021-11-18 04:21] LABS: Hematocrit 31.5 VOL% (42.0-52.0); Hemoglobin 10.5 GM/DL (14.0-18.0); Immature Granulocytes % 0.5 %; Immature Granulocytes Absolute 0.16 #; Lymphocytes # 0.2 10*3/uL (1.4-4.0); Lymphocytes % 0.5 % (21.2-54.2); Mean Corpuscular HGB Conc 33.3 GM/DL (32-36); Mean Corpuscular Volume 95.2 FL (87-102); Mean Platelet Volume 10.1 FL (9.6-12.0); Monocytes # 0.3 10*3/uL (0.11-0.8); Platelet Count 124 T/CUMM (130-400); Red Blood Count 3.31 MC/CUMM (3.8-5.5); Red Cell Distribution Width 14.5 % (9.3-17.3); White Blood Count 30.9 T/CUMM (4-12)
[2021-11-18 04:40] LABS: Alanine Aminotransferase 19 U/L (16-61); Alkaline Phosphatase 125 U/L (45-117); Aspartate Amino Transferase 26 U/L (0-37); Bilirubin,Total < 0.39 MG/DL (0.20-1.00); Blood Urea Nitrogen 20 MG/DL (7-18); Calcium 8.3 MG/DL (8.5-10.1); Carbon Dioxide 27 MMOL/L (21-32); Chloride 113 MMOL/L (98-107); Glucose 98 MG/DL (74-106); Osmolality,Calculated 290.7 MOS/KG (273-304); Potassium 3.9 MMOL/L (3.5-5.1); Sodium 145 MMOL/L (136-145)
[2021-11-18 04:46] LABS: Band Neutrophils 2 % (0-10); Lymphocytes 1 % (20-55); Total Cells Counted 100
[2021-11-18 04:47] LABS: Platelet Estimate Normal
[2021-11-18] MEDS: METOPROLOL TARTRATE 5 MG/5 ML VIAL IV SCH ×3 (08:44→09:15)
[2021-11-18] MEDS ORDERED: FUROSEMIDE 20 MG/2 ML VIAL IV ONE ×2 (08:54→15:17)
[2021-11-18] MEDS ORDERED: HYDROCORTISONE 100 MG VIAL IV SCH (09:00)
[2021-11-18] MEDS: PANTOPRAZOLE 40 MG VIAL IV SCH (09:18)
[2021-11-18] MEDS: LIDOCAINE 5% PATCH TRANSDERM SCH (09:19)
[2021-11-18] MEDS: ENOXAPARIN 60 MG/0.6 ML SYRINGE SUBCUT SCH ×2 (09:19→21:35)
[2021-11-18] MEDS: DEXTROSE 5% LACTATED RINGERS 1,000 ML IV SCH (19:08)
[2021-11-19 04:03] LABS: Basophils # 0.1 10*3/uL (0.0-0.2); Basophils % 0.3 % (0.0-0.8); Eosinophils % 0.2 % (0.00-10.9); Hematocrit 33.2 VOL% (42.0-52.0); Hemoglobin 11.1 GM/DL (14.0-18.0); Immature Granulocytes % 0.7 %; Immature Granulocytes Absolute 0.14 #; Lymphocytes # 0.3 10*3/uL (1.4-4.0); Lymphocytes % 1.5 % (21.2-54.2); Mean Corpuscular HGB Conc 33.4 GM/DL (32-36); Mean Corpuscular Volume 94.1 FL (87-102); Mean Platelet Volume 10.5 FL (9.6-12.0); Monocytes # 0.3 10*3/uL (0.11-0.8); Monocytes % 1.6 % (1.7-12.7); Neutrophils % 95.7 % (38.7-73.9); Platelet Count 103 T/CUMM (130-400); Red Blood Count 3.53 MC/CUMM (3.8-5.5); Red Cell Distribution Width 14.4 % (9.3-17.3); White Blood Count 20.3 T/CUMM (4-12)
[2021-11-19 04:25] LABS: Lymphocytes 1 % (20-55); Total Cells Counted 100
[2021-11-19 04:27] LABS: Alanine Aminotransferase 19 U/L (16-61); Albumin 1.9 G/DL (3.4-5.0); Alkaline Phosphatase 232 U/L (45-117); Aspartate Amino Transferase 29 U/L (0-37); Bilirubin,Total < 0.39 MG/DL (0.20-1.00); Blood Urea Nitrogen 26 MG/DL (7-18); Calcium 8.6 MG/DL (8.5-10.1); Carbon Dioxide 33 MMOL/L (21-32); Chloride 109 MMOL/L (98-107); Glucose 77 MG/DL (74-106); Osmolality,Calculated 293.6 MOS/KG (273-304); Platelet Estimate Decreased; Sodium 146 MMOL/L (136-145); Total Protein 5.1 G/DL (6.4-8.2)
[2021-11-19] MEDS: POTASSIUM CHLORIDE RIDER 20 MEQ/100 ML PREMIX IV PRN ×2 (04:55→06:05)
[2021-11-19] MEDS: DEXTROSE 5% LACTATED RINGERS 1,000 ML IV SCH ×2 (06:05→23:32)
[2021-11-19] MEDS ORDERED: FUROSEMIDE 20 MG/2 ML VIAL IV ONE (09:05)
[2021-11-19] MEDS: LIDOCAINE 5% PATCH TRANSDERM SCH (09:06)
[2021-11-19] MEDS ORDERED: ALBUMIN 25% 25 GM/100 ML VIAL IV ONE (09:06)
[2021-11-19] MEDS: PANTOPRAZOLE 40 MG VIAL IV SCH (09:07)
[2021-11-19] MEDS: ENOXAPARIN 60 MG/0.6 ML SYRINGE SUBCUT SCH ×2 (09:07→20:10)
[2021-11-19] MEDS: POTASSIUM CHLORIDE RIDER 10 MEQ/100 ML PREMIX IV PRN (14:31)
[2021-11-19] MEDS: ONDANSETRON 4 MG/2 ML VIAL IV PRN (22:20)
[2021-11-19] MEDS: HYDROmorphone 1 MG/1 ML SYRINGE IV PRN (22:25)
[2021-11-20 05:36] LABS: Basophils % 0.1 % (0.0-0.8); Eosinophils # 0.1 10*3/uL (0.0-0.87); Eosinophils % 0.7 % (0.00-10.9); Hematocrit 31.7 VOL% (42.0-52.0); Hemoglobin 10.5 GM/DL (14.0-18.0); Immature Granulocytes % 0.6 %; Immature Granulocytes Absolute 0.04 #; Lymphocytes # 0.3 10*3/uL (1.4-4.0); Lymphocytes % 3.9 % (21.2-54.2); Mean Corpuscular HGB Conc 33.1 GM/DL (32-36); Mean Corpuscular Volume 95.5 FL (87-102); Mean Platelet Volume 10.3 FL (9.6-12.0); Monocytes # 0.3 10*3/uL (0.11-0.8); Monocytes % 4.6 % (1.7-12.7); Neutrophils % 90.1 % (38.7-73.9); Platelet Count 93 T/CUMM (130-400); Red Blood Count 3.32 MC/CUMM (3.8-5.5); Red Cell Distribution Width 14.6 % (9.3-17.3); White Blood Count 6.8 T/CUMM (4-12)
[2021-11-20 05:51] LABS: Calcium 8.3 MG/DL (8.5-10.1); Osmolality,Calculated 293.6 MOS/KG (273-304)
[2021-11-20 05:54] LABS: Eosinophils 2 % (0-10); Lymphocytes 6 % (20-55); Total Cells Counted 100
[2021-11-20 05:56] LABS: Platelet Estimate Decreased
[2021-11-20] MEDS: HYDROmorphone 1 MG/1 ML SYRINGE IV PRN ×2 (06:05→21:21)
[2021-11-20] MEDS: PANTOPRAZOLE 40 MG VIAL IV SCH (08:48)
[2021-11-20] MEDS: FUROSEMIDE 20 MG/2 ML VIAL IV SCH (08:49)
[2021-11-20] MEDS: LIDOCAINE 5% PATCH TRANSDERM SCH (08:50)
[2021-11-20] MEDS: ALUMINUM/MAGNES/SIMETH MAX STR 30 ML UDCUP PO SCH ×3 (08:50→16:12)
[2021-11-20] MEDS: ENOXAPARIN 60 MG/0.6 ML SYRINGE SUBCUT SCH ×2 (08:50→20:09)
[2021-11-20] MEDS: POTASSIUM CHLORIDE RIDER 20 MEQ/100 ML PREMIX IV PRN ×4 (08:51→17:00)
[2021-11-20] MEDS ORDERED: GLUCAGON 1 MG VIAL IM PRN (09:48)
[2021-11-20] MEDS: POTASSIUM CHLORIDE RIDER 10 MEQ/100 ML PREMIX IV PRN (10:50)
[2021-11-20] MEDS ORDERED: ALUMINUM/MAGNES/SIMETH MAX STR 30 ML UDCUP PO PRN (16:02)
[2021-11-20] MEDS: INSULIN REGULAR 100 UNIT/ML SUBCUT SCH ×2 (16:03→18:30)
[2021-11-20] MEDS: FAT EMULSION 20% 250 ML IV SCH (16:03)
[2021-11-20] MEDS: DEXTROSE 5% LACTATED RINGERS 1,000 ML IV SCH ×2 (16:04→22:11)
[2021-11-20] MEDS ORDERED: FUROSEMIDE 20 MG/2 ML VIAL IV ONE (16:55)
[2021-11-20] MEDS ORDERED: ZINC/COPPER/MANGANESE/SELENIUM 1 ML, MULTIVITAMIN INJ 10 ML in AMINO ACIDS/DEXT/LYTES 5... IV SCH (17:00)
[2021-11-20] MEDS ORDERED: DEXTROSE 10% 1,000 ML IV PRN (17:00)
[2021-11-20] MEDS: ONDANSETRON 4 MG/2 ML VIAL IV PRN (21:17)
[2021-11-21] MEDS: INSULIN REGULAR 100 UNIT/ML SUBCUT SCH ×5 (00:11→22:16)
[2021-11-21 04:28] LABS: Basophils % 0.2 % (0.0-0.8); Eosinophils # 0.1 10*3/uL (0.0-0.87); Hematocrit 30.5 VOL% (42.0-52.0); Hemoglobin 10.1 GM/DL (14.0-18.0); Immature Granulocytes % 0.3 %; Immature Granulocytes Absolute 0.02 #; Lymphocytes # 0.2 10*3/uL (1.4-4.0); Lymphocytes % 3.8 % (21.2-54.2); Mean Corpuscular HGB Conc 33.1 GM/DL (32-36); Mean Corpuscular Volume 93.6 FL (87-102); Monocytes # 0.4 10*3/uL (0.11-0.8); Monocytes % 5.8 % (1.7-12.7); Neutrophils % 87.9 % (38.7-73.9); Platelet Count 78 T/CUMM (130-400); Red Blood Count 3.26 MC/CUMM (3.8-5.5); Red Cell Distribution Width 14.2 % (9.3-17.3)
[2021-11-21 04:48] LABS: Calcium 8.2 MG/DL (8.5-10.1); Osmolality,Calculated 287.1 MOS/KG (273-304); Potassium 3.1 MMOL/L (3.5-5.1)
[2021-11-21 04:59] LABS: Eosinophils 2 % (0-10); Lymphocytes 5 % (20-55); Total Cells Counted 100
[2021-11-21 05:00] LABS: Hypochromia 1+; Microcytosis Slight; Platelet Estimate Decreased
[2021-11-21] MEDS: POTASSIUM CHLORIDE RIDER 20 MEQ/100 ML PREMIX IV PRN ×2 (05:20→07:20)
[2021-11-21 05:29] LABS: Calcium 8.3 MG/DL (8.5-10.1); Osmolality,Calculated 287.1 MOS/KG (273-304); Phosphorous 2.7 MG/DL (2.5-4.9); Potassium 3.1 MMOL/L (3.5-5.1)
[2021-11-21] MEDS: FUROSEMIDE 20 MG/2 ML VIAL IV SCH (12:15)
[2021-11-21] MEDS: LIDOCAINE 5% PATCH TRANSDERM SCH (12:33)
[2021-11-21] MEDS: PANTOPRAZOLE 40 MG VIAL IV SCH (17:23)
[2021-11-21] MEDS: ENOXAPARIN 60 MG/0.6 ML SYRINGE SUBCUT SCH (17:23)
[2021-11-21] MEDS: ZINC/COPPER/MANGANESE/SELENIUM 1 ML, MULTIVITAMIN INJ 10 ML in AMINO ACIDS/DEXT/LYTES 5... IV SCH (17:51)
[2021-11-21] MEDS: FAT EMULSION 20% 250 ML IV SCH (17:51)
[2021-11-21] MEDS: DEXTROSE 5% LACTATED RINGERS 1,000 ML IV SCH (17:51)
[2021-11-21] MEDS: ONDANSETRON 4 MG/2 ML VIAL IV PRN (19:21)
[2021-11-21] MEDS: APIXABAN 5 MG TABLET PO SCH (21:40)
[2021-11-21] MEDS: FAMOTIDINE 20 MG TABLET PO SCH (21:40)
[2021-11-22] MEDS: ONDANSETRON 4 MG/2 ML VIAL IV PRN (00:13)
[2021-11-22] MEDS: HYDROmorphone 1 MG/1 ML SYRINGE IV PRN (00:16)
[2021-11-22 04:23] LABS: Basophils % 0.2 % (0.0-0.8); Eosinophils # 0.2 10*3/uL (0.0-0.87); Eosinophils % 3.5 % (0.00-10.9); Hematocrit 30.3 VOL% (42.0-52.0); Immature Granulocytes % 0.8 %; Immature Granulocytes Absolute 0.05 #; Lymphocytes # 0.3 10*3/uL (1.4-4.0); Lymphocytes % 5.5 % (21.2-54.2); Mean Corpuscular Volume 94.4 FL (87-102); Mean Platelet Volume 11.1 FL (9.6-12.0); Monocytes # 0.4 10*3/uL (0.11-0.8); Monocytes % 6.5 % (1.7-12.7); Neutrophils % 83.5 % (38.7-73.9); Platelet Count 88 T/CUMM (130-400); Red Blood Count 3.21 MC/CUMM (3.8-5.5); Red Cell Distribution Width 14.5 % (9.3-17.3)
[2021-11-22 04:40] LABS: Osmolality,Calculated 283.5 MOS/KG (273-304); Potassium 3.3 MMOL/L (3.5-5.1)
[2021-11-22 04:44] LABS: Eosinophils 3 % (0-10); Lymphocytes 7 % (20-55); Platelet Estimate Decreased; Total Cells Counted 100
[2021-11-22] MEDS: FAMOTIDINE 20 MG TABLET PO SCH ×2 (09:30→22:20)
[2021-11-22] MEDS: APIXABAN 5 MG TABLET PO SCH ×2 (09:31→22:20)
[2021-11-22] MEDS: LIDOCAINE 5% PATCH TRANSDERM SCH (09:33)
[2021-11-22] MEDS: FUROSEMIDE 20 MG/2 ML VIAL IV SCH (09:33)
[2021-11-22] MEDS: POTASSIUM CHLORIDE RIDER 10 MEQ/100 ML PREMIX IV PRN ×2 (09:35→11:20)
[2021-11-22] MEDS: DEXTROSE 5% LACTATED RINGERS 1,000 ML IV SCH ×2 (11:18→18:12)
[2021-11-22] MEDS ORDERED: FUROSEMIDE 20 MG/2 ML VIAL IV ONE (11:23)
[2021-11-22] MEDS: INSULIN REGULAR 100 UNIT/ML SUBCUT SCH ×4 (11:25→22:54)
[2021-11-22] MEDS: POTASSIUM CHLORIDE 20 MEQ TABLET PO SCH ×2 (13:29→22:20)
[2021-11-22] MEDS: ZINC/COPPER/MANGANESE/SELENIUM 1 ML, MULTIVITAMIN INJ 10 ML in AMINO ACIDS/DEXT/LYTES 5... IV SCH (17:49)
[2021-11-23 06:16] LABS: Basophils % 0.4 % (0.0-0.8); Eosinophils # 0.1 10*3/uL (0.0-0.87); Eosinophils % 2.5 % (0.00-10.9); Immature Granulocytes Absolute 0.05 #; Lymphocytes # 0.2 10*3/uL (1.4-4.0); Lymphocytes % 3.8 % (21.2-54.2); Mean Corpuscular HGB Conc 23.1 GM/DL (32-36); Mean Corpuscular Volume 138.8 FL (87-102); Mean Platelet Volume 11.2 FL (9.6-12.0); Monocytes # 0.3 10*3/uL (0.11-0.8); Monocytes % 5.9 % (1.7-12.7); Neutrophils % 86.4 % (38.7-73.9); Platelet Count 87 T/CUMM (130-400); Red Blood Count 2.06 MC/CUMM (3.8-5.5); Red Cell Distribution Width 15.9 % (9.3-17.3); White Blood Count 5.3 T/CUMM (4-12)
[2021-11-23 06:18] LABS: Hematocrit 28.6 VOL% (42.0-52.0); Hemoglobin 6.6 GM/DL (14.0-18.0)
[2021-11-23 06:43] LABS: Eosinophils 3 % (0-10); Lymphocytes 7 % (20-55); Platelet Estimate Decreased
[2021-11-23 06:44] LABS: Total Cells Counted 100
[2021-11-23] MEDS: INSULIN REGULAR 100 UNIT/ML SUBCUT SCH ×4 (07:40→20:16)
[2021-11-23 09:44] LABS: Basophils % 0.2 % (0.0-0.8); Eosinophils # 0.2 10*3/uL (0.0-0.87); Hematocrit 31.6 VOL% (42.0-52.0); Hemoglobin 10.5 GM/DL (14.0-18.0); Immature Granulocytes % 0.8 %; Immature Granulocytes Absolute 0.07 #; Lymphocytes # 0.3 10*3/uL (1.4-4.0); Lymphocytes % 3.4 % (21.2-54.2); Mean Corpuscular HGB Conc 33.2 GM/DL (32-36); Mean Corpuscular Volume 93.8 FL (87-102); Mean Platelet Volume 11.1 FL (9.6-12.0); Monocytes # 0.5 10*3/uL (0.11-0.8); Monocytes % 5.5 % (1.7-12.7); Neutrophils % 88.1 % (38.7-73.9); Platelet Count 142 T/CUMM (130-400); Red Blood Count 3.37 MC/CUMM (3.8-5.5); Red Cell Distribution Width 14.4 % (9.3-17.3); White Blood Count 8.3 T/CUMM (4-12)
[2021-11-23 09:55] LABS: Potassium 4.4 MMOL/L (3.5-5.1)
[2021-11-23 09:58] LABS: Calcium 8.3 MG/DL (8.5-10.1); Osmolality,Calculated 281.2 MOS/KG (273-304)
[2021-11-23] MEDS: LIDOCAINE 5% PATCH TRANSDERM SCH (10:56)
[2021-11-23] MEDS: FAMOTIDINE 20 MG TABLET PO SCH ×2 (10:57→20:51)
[2021-11-23] MEDS: FUROSEMIDE 40 MG/4 ML VIAL IV SCH (10:57)
[2021-11-23] MEDS: POTASSIUM CHLORIDE 20 MEQ TABLET PO SCH ×2 (10:57→20:50)
[2021-11-23] MEDS: APIXABAN 5 MG TABLET PO SCH ×2 (10:57→20:51)
[2021-11-23 12:15] LABS: Eosinophils 4 % (0-10); Lymphocytes 3 % (20-55); Ovalocytes Few; Platelet Estimate Adequate; Total Cells Counted 100
[2021-11-23] MEDS: ZINC/COPPER/MANGANESE/SELENIUM 1 ML, MULTIVITAMIN INJ 10 ML in AMINO ACIDS/DEXT/LYTES 5... IV SCH (18:27)
[2021-11-23] MEDS: DEXTROSE 5% LACTATED RINGERS 1,000 ML IV SCH (21:16)
[2021-11-24 05:04] LABS: Basophils % 0.3 % (0.0-0.8); Eosinophils # 0.1 10*3/uL (0.0-0.87); Eosinophils % 1.4 % (0.00-10.9); Hematocrit 29.1 VOL% (42.0-52.0); Hemoglobin 9.6 GM/DL (14.0-18.0); Immature Granulocytes % 1.3 %; Immature Granulocytes Absolute 0.12 #; Lymphocytes # 0.3 10*3/uL (1.4-4.0); Lymphocytes % 3.6 % (21.2-54.2); Mean Corpuscular Volume 94.2 FL (87-102); Mean Platelet Volume 10.9 FL (9.6-12.0); Monocytes # 0.6 10*3/uL (0.11-0.8); Monocytes % 6.2 % (1.7-12.7); Neutrophils % 87.2 % (38.7-73.9); Platelet Count 157 T/CUMM (130-400); Red Blood Count 3.09 MC/CUMM (3.8-5.5); Red Cell Distribution Width 14.3 % (9.3-17.3); White Blood Count 9.1 T/CUMM (4-12)
[2021-11-24 05:18] LABS: Calcium 8.6 MG/DL (8.5-10.1); Osmolality,Calculated 271.1 MOS/KG (273-304); Potassium 4.2 MMOL/L (3.5-5.1)
[2021-11-24 05:27] LABS: Eosinophils 2 % (0-10); Lymphocytes 2 % (20-55); Platelet Estimate Adequate; Total Cells Counted 100
[2021-11-24] MEDS: FUROSEMIDE 40 MG/4 ML VIAL IV SCH (10:00)
[2021-11-24] MEDS: POTASSIUM CHLORIDE 20 MEQ TABLET PO SCH (10:00)
[2021-11-24] MEDS: LIDOCAINE 5% PATCH TRANSDERM SCH (10:00)
[2021-11-24] MEDS: FAMOTIDINE 20 MG TABLET PO SCH ×2 (10:00→21:05)
[2021-11-24] MEDS: APIXABAN 5 MG TABLET PO SCH ×2 (10:00→21:05)
[2021-11-24] MEDS: INSULIN REGULAR 100 UNIT/ML SUBCUT SCH ×4 (10:23→20:50)
[2021-11-24] MEDS: DEXTROSE 5% LACTATED RINGERS 1,000 ML IV SCH (17:45)
[2021-11-25 04:51] LABS: Basophils % 0.3 % (0.0-0.8); Eosinophils # 0.1 10*3/uL (0.0-0.87); Hematocrit 28.6 VOL% (42.0-52.0); Hemoglobin 9.4 GM/DL (14.0-18.0); Immature Granulocytes % 1.2 %; Immature Granulocytes Absolute 0.11 #; Lymphocytes # 0.3 10*3/uL (1.4-4.0); Lymphocytes % 3.3 % (21.2-54.2); Mean Corpuscular HGB Conc 32.9 GM/DL (32-36); Mean Corpuscular Volume 94.1 FL (87-102); Mean Platelet Volume 10.5 FL (9.6-12.0); Monocytes # 0.7 10*3/uL (0.11-0.8); Monocytes % 7.2 % (1.7-12.7); Platelet Count 214 T/CUMM (130-400); Red Blood Count 3.04 MC/CUMM (3.8-5.5); Red Cell Distribution Width 14.2 % (9.3-17.3); White Blood Count 9.1 T/CUMM (4-12)
[2021-11-25 05:12] LABS: Band Neutrophils 4 % (0-10); Eosinophils 2 % (0-10); Lymphocytes 3 % (20-55); Total Cells Counted 100
[2021-11-25 05:13] LABS: Microcytosis Slight
[2021-11-25 05:18] LABS: Calcium 8.6 MG/DL (8.5-10.1); Osmolality,Calculated 274.8 MOS/KG (273-304); Potassium 3.8 MMOL/L (3.5-5.1)
[2021-11-25 08:46] VITALS: BP 94/50
[2021-11-25] MEDS ORDERED: POTASSIUM CHLORIDE 20 MEQ TABLET PO SCH (09:00)
[2021-11-25] MEDS: FUROSEMIDE 40 MG/4 ML VIAL IV SCH (09:22)
[2021-11-25] MEDS: APIXABAN 5 MG TABLET PO SCH (09:22)
[2021-11-25] MEDS: FAMOTIDINE 20 MG TABLET PO SCH (09:22)
[2021-11-25] MEDS: LIDOCAINE 5% PATCH TRANSDERM SCH (09:25)
[2021-11-25] MEDS: INSULIN REGULAR 100 UNIT/ML SUBCUT SCH ×2 (09:28→11:36)
== END 2021-11-25 11:34 | disposition home or self-care (01) | DRG 981 ==
LOC: N.CT 13:40 → SUATTDRO 15:03 → N.3E 15:03 → N.ICU 11-15 16:44 → N.TELES 11-21 17:38
PROVIDERS: ADMIT Specialist; ATTEND Emergency Medicine